=== PATIENT | male | born 1960 | race Hispanic/Latino ===

== ENCOUNTER 2022-06-23 13:45 | Emergency (ER) | payer BC, OTHER ==
[~2022-06-23] VITALS: Ht 172.7 cm; Wt 93.0 kg
[~2022-06-23 13:45] MED LIST: ASPIRIN BUFFER325 MG PO; ASPIRIN81 MG PO; ATORVASTATIN CA20 MG PO; CIALIS10 MG PO; CRESTOR40 MG PO; DIOVAN HCT 3201 EACH PO; FERROUS SULFAT325 MG PO; FISH OIL CONC1000 MG PO; FUROSEMIDE40 MG PO; LANTUS 3ML100 UNITS/ SQ; LISINOPRIL10 MG PO; MAGNESIUM OXID400 MG PO; METFORMIN HCL1000 MG PO; METOPROLOL TART25 MG PO; ONE-TABLET-DAI1 EACH PO; PANTOPRAZOLE SO40 MG PO; VICTOZA 2-0.6 MG/0.1 SQ; VITAMIN D32000 UNIT PO; WARFARIN SODIUM3 MG PO; WARFARIN SODIUM5 MG PO; [UNRECOGNIZED DRUG - CODE] PO
[2022-06-23 14:38] LABS: BASOPHILS # (AUTO) 0.1 (0.0-0.1); BASOPHILS % 0.9 % (0.0-1.0); EOSINOPHILS % 0.7 % (0.0-6.0); HEMATOCRIT 40.4 % (38.2-49.6); HEMOGLOBIN 13.8 g/dL (14.0-18.0); LYMPHOCYTES # (AUTO) 0.7 (1.0-3.2); LYMPHOCYTES % 13.1 % (18.0-39.1); MEAN CORPUSCULAR HEMOGLOBIN 32.7 pg (28-32); MEAN CORPUSCULAR HGB CONC 34.2 g/dL (31-35); MEAN CORPUSCULAR VOLUME 95.7 fL (81-99); MONOCYTES # (AUTO) 0.4 (0.2-0.8); MONOCYTES % 7.1 % (4.4-11.3); NEUTROPHILS # (AUTO) 4.3 (2.1-6.9); PLATELET COUNT 234 x10e3/uL (140-360); RED BLOOD COUNT 4.22 x10e6/uL (4.3-5.7); RED CELL DISTRIBUTION WIDTH 14.4 % (11.7-14.4)
[2022-06-23 14:48] LABS: INR 1.55; PROTHROMBIN TIME 19.9 seconds (11.9-14.5)
[2022-06-23 14:49] LABS: PARTIAL THROMBOPLASTIN TIME 28.1 seconds (23.8-35.5)
[2022-06-23 15:02] LABS: CALCIUM 9.7 mg/dL (8.4-10.2); CREATININE, SERUM 1.1 mg/dL (0.72-1.25)
[2022-06-23 15:19] LABS: CLARITY,URINE CLEAR (CLEAR); COLOR,URINE YELLOW (YELLOW); KETONES,URINE NEGATIVE (NEGATIVE); LEUKOCYTE ESTERASE ,URINE NEGATIVE (NEGATIVE); NITRITE,URINE NEGATIVE (NEGATIVE); PROTEIN,URINE DIPSTICK NEGATIVE (NEGATIVE); URINE UROBILINOGEN 0.2 mg/dL (0.2 - 1)
[2022-06-23 15:33] LABS: WBC,URINE (MAN) 0-5 /HPF (0-5)
[2022-06-23 15:34] LABS: BACTERIA,URINE RARE /HPF
[2022-06-23] MEDS ORDERED: ASPIRIN 81 MG CHEW TAB PO STA (15:51)
[2022-06-23] MEDS ORDERED: DIPHENHYDRAMINE HCL INJ 50 MG/ML VIAL IV ONE (16:30)
== END 2022-06-23 18:56 | disposition other institution (70) ==
LOC: ER 14:19
DX: R47.01 Aphasia (principal); R50.9 Fever, unspecified; E11.65 Type 2 diabetes mellitus with hyperglycemia; I10 Essential (primary) hypertension; E78.5 Hyperlipidemia, unspecified; K21.9 Gastro-esophageal reflux disease without esophagitis; Z95.2 Presence of prosthetic heart valve
CPT/HCPCS: 0223U; 36415; 70450; 70496; 70498; 80048; 81001; 82948; 84484; 85025; 85610; 85730; 93005; 99284; J1200

== ENCOUNTER 2025-02-27 13:49 | Emergency (ER) | payer BC, OTHER ==
[~2025-02-27] VITALS: Ht 172.7 cm; Wt 93.0 kg
[2025-02-27] MEDS: METHYLPREDNISOLONE SOD SUCC 125 MG/2ML VIAL IV ONE (14:01)
[2025-02-27] MEDS: DIPHENHYDRAMINE HCL INJ 50 MG/ML VIAL IV ONE (14:01)
[2025-02-27] MEDS: FAMOTIDINE 20 MG/2 ML VIAL IV STA (14:01)
[2025-02-27] MEDS ORDERED: ZYRTEC10 MG PO (16:52)
[2025-02-27] MEDS ORDERED: EPINEPHRIN0.3 MG/0.3 INJ (16:52)
[2025-02-27 17:00] VITALS: PULSE 72; RESP 22; O2SAT 96
== END 2025-02-27 17:24 | disposition home or self-care (01) ==
LOC: ER 13:55
DX: T78.1XXA Other adverse food reactions, not elsewhere classified, initial encounter (principal); L27.2 Dermatitis due to ingested food; I10 Essential (primary) hypertension; E11.9 Type 2 diabetes mellitus without complications; E78.5 Hyperlipidemia, unspecified; G47.30 Sleep apnea, unspecified; K21.9 Gastro-esophageal reflux disease without esophagitis; Z86.73 Personal history of transient ischemic attack (TIA), and cerebral infarction without residual deficits; Z95.4 Presence of other heart-valve replacement
CPT/HCPCS: 99283; J1200; J2919